=== PATIENT | male | born 1945 | race Caucasian/White ===

== ENCOUNTER → 2020-04-19 | Outpatient (CLI) | payer OTHER ==
[~2020-04-19] MED LIST: ASPIRIN; B-COMPLEX-VITA1 EACH; FENOFIBRATE160 MG; FISHOIL; GLUCOSAMINE &1 EACH; Glucosamine; IRON; LIPITOR; MULTIVITAMINS; vitamin D
== END ==
LOC: ULTRA 09:28
PROVIDERS: ATTEND Family Medicine
DX: N28.1 Cyst of kidney, acquired (principal); R16.0 Hepatomegaly, not elsewhere classified; K80.20 Calculus of gallbladder without cholecystitis without obstruction

== ENCOUNTER → 2020-05-24 | Outpatient (CLI) | payer OTHER ==
[~2020-05-24] MED LIST changes: +DAILY MULTIPLE1 EACH PO; +FISH OIL 1,0001 EAC9 PO; +GLUCOSAMINE CH1 EAC1 PO; +IRON325 PO; +MAGNESIUM400 M1 PO; +TUMS200 MG PO
== END ==
LOC: LAB 07:31
PROVIDERS: ATTEND Surgery
DX: Z01.812 Encounter for preprocedural laboratory examination (principal); Z20.822 Contact with and (suspected) exposure to COVID-19

== ENCOUNTER 2020-05-29 06:04 | Observation (INO) | payer OTHER ==
[~2020-05-29] VITALS: Ht 170.2 cm; Wt 92.1 kg
[2020-05-29 07:02] LABS: HEMATOCRIT 42.6 % (42.0-52.0); MCH 27.7 pg (26.0-34.0); MCHC 32.9 g/dL (28.0-37.0); RBC 5.08 mil/uL (4.50-6.00); RDW 13.4 % (10.5-14.5)
[2020-05-29 07:12] LABS: CALCIUM 9.7 mg/dL (8.5-10.1); CREATININE 1.2 mg/dL (0.7-1.3); POTASSIUM 3.5 mmol/L (3.5-5.1)
[2020-05-29 07:18] LABS: ALBUMIN 3.6 g/dL (3.4-5.0); TOTAL BILIRUBIN 0.7 mg/dL (0.2-1.0); TOTAL PROTEIN 6.8 g/dL (6.4-8.2)
[2020-05-29 07:22] VITALS: BP 128/86
--- NOTE | 2020-05-29 15:45 | NUR ---
Pt transferred from recovery room approx 1435. Surgical incisions well-approximated. Pt denies pain. Will stay in the hospital overnight. VSS. Pt ambulates with steady gait. Admission completed. Call light within reach. Will continue to monitor.
[2020-05-29] MEDS ORDERED: LIPITOR40 MG PO (15:57)
[2020-05-29 23:24] VITALS: BP 120/63
[2020-05-30 03:54] VITALS: BP 129/60
--- NOTE | 2020-05-30 04:32 | NUR ---
Ambulated around hallway at and tolerated well. Up ad rangel with steady gait. Mild pain with movement he described as stretching , scheduled tylenol given with good relief. Encouraged use of IS and able to reach 2500 ml. Lap sites well approximated. SCD's in place. Encouraged use of urinal for accurate I/O. He stated he will try , urinal in bathroom. He slept well during the night and looking forward to being disharge home today. SCD's while in bed.
[2020-05-30 07:45] VITALS: BP 112/77
[2020-05-30] MEDS ORDERED: ACETAMINOPHEN325 M1 PO (08:08)
[2020-05-30] MEDS ORDERED: OXYCODONE HCL 55 MG PO (08:08)
[2020-05-30] MEDS ORDERED: MIRALAX17 GM PO (08:09)
[2020-05-30] MEDS ORDERED: COLACE 100 MG100 MG PO (08:09)
--- NOTE | 2020-05-30 08:40 | NUR ---
ASSESSMENT: CM REVIEWED CHART AND SPOKE WITH PATIENT. PT IS ALERT AND ORIENTED X4. PT IS S/P LAP LEVI. PT REPORTS LIVING IN A TOWNHOUSE BY HIMSELF. PT REPORTS HE HAS ABOUT 10 STEPS FROM HIS FRONT DOOR TO THE MAIN LEVEL AND ABOUT 12 STEPS TO WHERE HIS GARAGE IS WITH HANDRAILS. PT REPORTS BEING FULLY INDEPENDENT WITH ADLS AND AMBULATION. PT REPORTS BEING VERY ACTIVE. PT DENIES ANY HX OF HH OR SNF. PT DOES NOT ANTICIPATE HAVING ANY NEEDS FROM CM. PLANS ARE FOR PATIENT TO DISCHARGE HOME TODAY.
[2020-05-30 11:58] VITALS: BP 112/77
--- NOTE | 2020-05-30 13:55 | NUR ---
PT ASSESSED AT START OF SHIFT. PAIN MINIMAL W/ SCHEDULED TYLENOL. UP AMBULATING IN HALLS SEVERAL TIMES. EATING AND DRINKING WELL. PASSING FLATUS. DISCHARGE TO HOME AT THIS TIME W/ ALL BELONGINGS.
--- NOTE | 2020-05-31 17:06 | PATH ---
[facility] [address] [place] [address] PATHOLOGY RPT PROCEDURE Name: YOVANY ROBBINS [facility] Room #: 440-P [facility] Bebe MBasia#: [id number] Admission: 05/29/20 Date of : 45 Discharge: 05/30/20 Report #: [id number] Path Case #: [id number] [facility] Accession Number: [id number] . 01 Material submitted: . gallbladder - GALLBLADDER . 01 Clinical history: . TRANSAMINITIS,CHOLELITHIASIS . 02 Diagnosis: Gallbladder: - Chronic cholecystitis and cholelithiasis. . (MILDRED:mml; 05/31/2020) [facility] 05/31/2020 1228 Local . 02 Electronically signed: . Oc Maguire MD, Pathologist NPI- [id number] . 01 Gross description: . The specimen is received in formalin labeled "Robbins, Yovany, gallbladder" and consists of a punctured and deflated green-pink gallbladder measuring 5.6 x 2.8 x 1.1 cm. The margin is inked black. Opening reveals a lumen filled with bile and multiple black gravel-like calculi measuring approximately 2.5 x 2.5 cm aggregate. The mucosa is green with scattered yellow flecks and an average wall thickness of 0.2 cm. No masses are identified. Screedman sections are submitted in A1. (SDY; 05/30/2020) SYU/SYU 05/30/2020 1319 Local . 02 Pathologist provided ICD-10: K80.10 . 02 CPT . 818364 Specimen Comment: Report sent to / Performed at: 01 [facility] [address], [place] [id number] MD Macario Clayton MD Phone: [phone] Performed at: 02 [facility] [address], [place], [place] [id number] MD Oc Maguire MD Phone: [phone]
== END 2020-05-30 14:06 | disposition home or self-care (01) ==
LOC: OR 06:04 → TBA 06:05 → OR 09:19 → 4S 14:43 → OR 14:44 → 4S 14:44
PROVIDERS: ADMIT Surgery; ATTEND Surgery
DX: K81.9 Cholecystitis, unspecified (principal); R74.01 Elevation of levels of liver transaminase levels; E78.5 Hyperlipidemia, unspecified; J45.909 Unspecified asthma, uncomplicated; Z87.891 Personal history of nicotine dependence
CPT/HCPCS: 50010; 50101; 50411; 50555; 50558; 51489; 52265; 52266; 53307; 53310; 53312; 54022; 54118; 55245; 56462; 56525; 56526; 56674; 58574; 62110; 62900; 70005